=== PATIENT | female | born 2000 | race Caucasian/White ===

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

== ENCOUNTER 2021-01-28 08:37 | Emergency (ER) | payer OTHER ==
[~2021-01-28] VITALS: Ht 154.9 cm; Wt 55.7 kg
[~2021-01-28 08:37] MED LIST changes: -CETI10TA24 PO; +CETI10TA74 PO
--- NOTE | 2021-01-28 09:07 | PHYS DOC ---
Past History Past Medical History: Asthma Past Surgical History: No Surgical History Smoking: Non-smoker Alcohol Use: None Drug Use: None General Adult EDM: Chief Complaint: ABDOMINAL PAIN HPI: HPI: 20-year-old female presents with right lower quadrant abdominal pain. The patient has been having issues with right lower quadrant pain for a couple of weeks. She was diagnosed with a UTI and treated with Macrobid. She felt better for couple of days but then the pain has been coming back. Over the last 24 hours, it has become more intense and she has had some nausea and dizziness. She rates the pain moderate to severe at this time. She is still having some urinary hesitancy and dysuria. Her bowel movements are regular. She denies fever or chills. Review of Systems: Review of Systems: Constitutional: Denies fever or chills Eyes: Denies change in visual acuity HENT: Denies nasal congestion or sore throat Respiratory: Denies cough or shortness of breath Cardiovascular: Denies chest pain or edema GI: Right lower quadrant abdominal pain, nausea. Denies vomiting, bloody stools or diarrhea : Dysuria, urinary hesitancy Musculoskeletal: Denies back pain or joint pain Integument: Denies rash Neurologic: Denies headache, focal weakness or sensory changes Endocrine: Denies polyuria or polydipsia Lymphatic: Denies swollen glands Psychiatric: Denies depression or anxiety Allergies: Allergies: Allergies Coded Allergies Type Severity Reaction Last Updated Verified Sulfa (Sulfonamide Antibiotics) Allergy Intermediate Rash 04/02/17 Yes Physical Exam: PE: Constitutional: Well developed, well nourished, no acute distress, non-toxic appearance. [] HENT: Normocephalic, atraumatic, bilateral external ears normal, oropharynx moist, no oral exudates, nose normal. [] Eyes: PERRLA, EOMI, conjunctiva normal, no discharge. [] Neck: Normal range of motion, no tenderness, supple, no stridor. [] Cardiovascular: Heart rate regular rhythm, no murmur [] Lungs & Thorax: Bilateral breath sounds clear to auscultation [] Abdomen: Bowel sounds normal, soft, right lower quadrant tenderness, no masses, no pulsatile masses. [] Skin: Warm, dry, no erythema, no rash. [] Back: No tenderness, no CVA tenderness. [] Extremities: No tenderness, no cyanosis, no clubbing, ROM intact, no edema. [] Neurologic: Alert and oriented X 3, normal motor function, normal sensory function, no focal deficits noted. [] Psychologic: Affect normal, judgement normal, mood normal. [] Current Patient Data: Labs: Laboratory Tests Test 01/28/21 08:56 POC Urine HCG, Qualitative hcg negative (Negative) EKG: EKG: [] Radiology/Procedures: Radiology/Procedures: [] Heart Score: C/O Chest Pain: N/A Risk Factors: Risk Factors: DM, Current or recent (<one month) smoker, HTN, HLP, family history of CAD, obesity. Risk Scores: Score 0 - 3: 2.5% MACE over next 6 weeks - Discharge Home Score 4 - 6: 20.3% MACE over next 6 weeks - Admit for Clinical Observation Score 7 - 10: 72.7% MACE over next 6 weeks - Early Invasive Strategies Course & Med Decision Making: Course & Med Decision Making Pertinent Labs and Imaging studies reviewed. (See chart for details) The patient's labs are unremarkable her CT scan is negative for appendicitis or other significant findings. She does have some stool retention in the right colon. The patient has elected to add a pelvic exam to rule out STD and pelvic infections. Her wet prep is negative for GC chlamydia is pending. Urinalysis is negative for infection. It could be that this pain is from constipation. I advised that she do a bowel cleanout at home. She is stable for discharge at this time. [] Dragon Disclaimer: Dragon Disclaimer: This electronic medical record was generated, in whole or in part, using a voice recognition dictation system. Departure Departure: Impression: Primary Impression: Right lower quadrant abdominal pain Additional Impression: Constipation by delayed colonic transit Disposition: HOME / SELF CARE / HOMELESS Condition: STABLE Referrals: ODELL MARIE DO (PCP) Patient Instructions: Abdominal Pain, Women, Constipation, Adult, [id number] DANELLE GIL DO Jan 28, 2021 09:07
[2021-01-28 09:14] LABS: BASO # 0.1 x10^3/uL (0.0-0.2); BASO % 1 % (0-3); EOS # 0.7 x10^3/uL (0.0-0.7); EOS % 10 % (0-3); HEMATOCRIT 42.2 % (36.0-47.0); HEMOGLOBIN 14.1 g/dL (12.0-15.5); LYMPH # 2.5 x10^3/uL (1.0-4.8); LYMPH % 33 % (24-48); MEAN CORPUSCULAR HEMOGLOBIN 31 pg (25-35); MEAN CORPUSCULAR HGB CONC 34 g/dL (31-37); MEAN CORPUSCULAR VOLUME 94 fL (79-100); MONO # 0.4 x10^3/uL (0.0-1.1); MONO % 5 % (0-9); NEUT # 3.9 x10^3uL (1.8-7.7); NEUT % 51 % (31-73); PLATELET COUNT 251 x10^3/uL (140-400); RED BLOOD COUNT 4.51 x10^6/uL (3.50-5.40); RED CELL DISTRIBUTION WIDTH 12.2 % (11.5-14.5); WHITE BLOOD COUNT 7.7 x10^3/uL (4.0-11.0)
[2021-01-28] MEDS ORDERED: IV NORMAL SALINE 1,000ML 1,000 ML IV ONE (09:15)
[2021-01-28] MEDS ORDERED: KETOROLAC 30 MG/ML VIAL. IVP ONE (09:15)
[2021-01-28] MEDS ORDERED: ONDANSETRON PF 4 MG/2 ML VIAL. IVP ONE (09:15)
[2021-01-28 09:22] LABS: CREATININE 0.9 mg/dL (0.6-1.0); GFR 80.7; POTASSIUM 4.3 mmol/L (3.5-5.1)
[2021-01-28 09:29] LABS: ALBUMIN 3.9 g/dL (3.4-5.0); ALBUMIN/GLOBULIN RATIO 1.1 (1.0-1.7); TOTAL BILIRUBIN 0.3 mg/dL (0.2-1.0); TOTAL PROTEIN 7.6 g/dL (6.4-8.2)
[2021-01-28] MEDS ORDERED: IOHEXOL 300 MG/ML 75 ML VIAL. IV ONE (09:30)
[2021-01-28 09:41] LABS: BILIRUBIN,URINE NEG (NEG); CLARITY,URINE CLEAR; COLOR,URINE YELLOW; GLUCOSE,URINE NEG (NEG); NITRITE,URINE NEG (NEG); RBC,URINE 0 /HPF (0-2); UROBILINOGEN,URINE 0.2 mg/dL (0.2 mg/dL)
[2021-01-28 09:42] LABS: BACTERIA,URINE 0 /HPF (0-FEW); SQUAMOUS EPITHELIAL CELL,UR MOD /LPF
--- NOTE | 2021-01-28 11:06 | RAD ---
PQRS Compliance Statement: One or more of the following individualized dose reduction techniques were utilized for this examinat ion: 1. Automated exposure control 2. Adjustment of the mA and/or kV according to patient size 3. Use of iterative reconstruction technique CT ABDOMEN+PELVIS W Clinical Indication: Reason: RLQ pain x 1 month, worsening / Spl. Instructions: / History: Comparison: None. Technique: Helical CT imaging of the abdomen and pelvis is performed after 75 cc of Omnipaque 300 IV contrast. Oral contrast not administered. Findings: Lung bases are clear. Cardiac size normal. The liver, gallbladder, spleen, pancreas, adrenal glands, abdominal aorta, and kidneys are normal. The stomach is unremarkable. There is no small bowel obstruction. The appendix is normal. There is no colon wall thickening. No abdominal adenopathy or free fluid is identified. The urinary bladder is moderately distended, otherwise normal. The uterus is unremarkable. There is s uggestion of small bilateral ovarian follicles. There is trace pelvic free fluid, probably physiologi c. No acute bone abnormality. IMPRESSION: 1. No acute abdominal or pelvic abnormality. The appendix is normal. 2. Trace pelvic free fluid is likely physiologic. Electronically signed by: Tye Ye MD (01/28/2021 11:03 AM) [id number]
[2021-01-28 12:13] VITALS: BP 119/67
[2021-01-30 15:11] LABS: CHLAMYDIA PROBE Negative (Negative)
== END 2021-01-28 12:32 | disposition home or self-care (01) ==
LOC: ER 08:37
DX: K59.01 Slow transit constipation (principal); R42 Dizziness and giddiness; R39.11 Hesitancy of micturition; R30.0 Dysuria; J45.909 Unspecified asthma, uncomplicated; Z88.2 Allergy status to sulfonamides
CPT/HCPCS: 36415; 74177; 80053; 81001; 81025; 85025; 87086; 87491; 87591; 96361; 96374; 96375; 99285; J1885; J2405; J7030; Q0111; Q9967